=== PATIENT | male | born 1980 | race Caucasian/White ===

== ENCOUNTER 2020-01-20 23:10 | Inpatient (IN) | payer OTHER ==
[~2020-01-20] VITALS: Ht 177.8 cm; Wt 83.1 kg
--- NOTE | 2020-01-20 23:34 | NUR ---
INITIAL CONTACT WITH PT. ASSESSMENT DONE. PT HAS HX OF HERNIATED DISC, SAW CHIROPRACTOR LAST WEEK, HAS HAD INCREASING PAIN, TAKING MOTRIN AND TONIGHT HAD ONSET OF NUMBNESS IN PERIANAL AREA AND FELT HE WAS GOING TO LOSE CONTROL OF HIS BLADDER. PT STATES HAS HAD R LEG WEAKNESS, ABLE TO WALK.
[2020-01-20] MEDS ORDERED: IBUP-1623 PO (23:44)
--- NOTE | 2020-01-21 | NUR ---
MRI SCREEN COMPLETED.
[2020-01-21 00:24] LABS: BASOPHILS # (AUTO) 0.03 x10^3/uL (0-0.1); BASOPHILS % (AUTO) 0 % (0-1); EOSINOPHILS # (AUTO) 0.11 x10^3/uL (0-0.4); EOSINOPHILS % (AUTO) 1 % (1-7); LYMPHOCYTES # (AUTO) 1.59 x10^3/uL (1-3.4); LYMPHOCYTES % (AUTO) 20 % (22-44); MD NO; MEAN CORPUSCULAR HEMOGLOBIN 31.1 pg (27.5-34.5); MEAN CORPUSCULAR HGB CONC 33.9 g/dL (33.2-36.2); MEAN CORPUSCULAR VOLUME 91.8 fL (81-97); MEAN PLATELET VOLUME 8.1 fL (7.4-10.4); MONOCYTES % (AUTO) 6 % (2-9); NEUTROPHILS # (AUTO) 5.59 x10^3/uL (1.8-6.8); NEUTROPHILS % (AUTO) 72 % (42-75); PLATELET COUNT 340 x10^3/uL (130-400); RED BLOOD COUNT 4.53 x10^6/uL (4.38-5.82); RED CELL DISTRIBUTION WIDTH 12.6 % (9.4-14.8)
[2020-01-21 00:33] LABS: ANION GAP 3 mmol/L (5-15); CALCIUM 8.9 mg/dL (8.5-10.1); CHLORIDE 104 mmol/L (98-107); CREATININE 1.02 mg/dL (0.7-1.3)
--- NOTE | 2020-01-21 00:41 | NUR ---
PT IN MRI.
[2020-01-21 00:58] LABS: MICROSCOPIC NOT IND
[2020-01-21] MEDS ORDERED: GADOTERATE 10 MMOL/20 ML SYR ONE (00:58)
[2020-01-21 01:02] LABS: AMPHETAMINE SCREEN, URINE Negative (Negative); BARBITURATE SCREEN, URINE Negative (Negative); BENZODIAZEPINE SCREEN, URINE Negative (Negative); CANNABINOID SCREEN, URINE Negative (Negative); COCAINE SCREEN, URINE Negative (Negative); METHADONE SCREEN, URINE Negative (Negative); OPIATE SCREEN, URINE Negative (Negative)
[2020-01-21] MEDS ORDERED: MORPHINE SULFATE 4 MG/ML, 1ML IVPush PRN (02:30)
[2020-01-21] MEDS ORDERED: ONDANSETRON 2MG/ML, 2ML IVPush PRN ×3 (02:30→04:00)
[2020-01-21 02:38] LABS: INTERNATIONAL NORMALIZED RATIO 0.96 (0.93-1.1); PROTHROMBIN TIME 10.2 Seconds (9.6-11.5)
--- NOTE | 2020-01-21 02:41 | NUR ---
PT TO BE ADMITTED TO ROOM 375. REPORT TO ANA FERNANDEZ.
--- NOTE | 2020-01-21 02:56 | NUR ---
REPORT TO OR. PT TO GO TO OR IN ABOUT 20 MINUTES.
[2020-01-21] MEDS ORDERED: morphine SULFATE 10 MG/ML, 1ML IVPush PRN ×2 (03:00→04:00)
[2020-01-21] MEDS ORDERED: DEXAMETHASONE 4 MG/ML, 5ML IVPush ONE (03:00)
--- NOTE | 2020-01-21 03:03 | NUR ---
Report received from JIM Toro. This RN to assume care. POC: patient to go to OR. Had patient undress and belongings bagged with sticker. Awaiting OR.
[2020-01-21] MEDS ORDERED: BACITRACIN 50,000 UNIT ONE (03:11)
[2020-01-21] MEDS ORDERED: THROMBIN 5,000 UNIT VIAL TP ONE (03:12)
[2020-01-21] MEDS ORDERED: BUPIVACAINE/PF-EPI 0.5% 1:200K ONE (03:12)
[2020-01-21] MEDS ORDERED: DEXAMETHASONE 4 MG/ML, 5ML ONE (03:16)
--- NOTE | 2020-01-21 03:25 | NUR ---
OR here to xfer patient.
[2020-01-21] MEDS ORDERED: FENTANYL PF 250 MCG/5ML ONE (03:59)
[2020-01-21] MEDS ORDERED: DIPHENHYDRAMINE 50 MG/ML, 1ML IM PRN (04:00)
[2020-01-21] MEDS ORDERED: MAGNESIUM HYDROXIDE 8%, 30ML UDC PO PRN (04:00)
[2020-01-21] MEDS: LABETALOL 5MG/ML 40ML VIAL IVPush SCH ×3 (04:00→20:00)
[2020-01-21] MEDS ORDERED: HYDROcodone/APAP 5/325 TABLET PO PRN (04:00)
[2020-01-21] MEDS ORDERED: PHARMACY MAY ADJ FOR RENAL FX MC PRN (04:00)
[2020-01-21] MEDS ORDERED: LABETALOL 5MG/ML, 20ML IVPush PRN (04:00)
[2020-01-21] MEDS ORDERED: DIPHENHYDRAMINE 50 MG/ML, 1ML IVPush PRN (04:00)
[2020-01-21] MEDS ORDERED: SENNA/DOCUSATE TABLET PO PRN (04:00)
[2020-01-21] MEDS ORDERED: LIDOCAINE 1%, 10ML ONE (04:06)
[2020-01-21] MEDS ORDERED: VANCOMYCIN 1,000 MG ONE (04:25)
[2020-01-21] MEDS ORDERED: BUPIVACAINE/PF-EPI 0.5% 1:200K INFIL ONE (04:59)
[2020-01-21] MEDS ORDERED: ALBUTEROL SULFATE 2.5 MG/3 ML NPPB PRN (05:00)
[2020-01-21] MEDS ORDERED: LABETALOL 5MG/ML, 20ML IV PRN (05:00)
[2020-01-21] MEDS ORDERED: ACETAMINOPHEN 325 MG TABLET PO PRN (05:00)
[2020-01-21] MEDS ORDERED: METHOCARBAMOL 1,000 MG in DEXTROSE 5% 100 ML IV PRN (05:00)
[2020-01-21] MEDS ORDERED: PROMETHAZINE 25 MG/ML, 1ML IVPush PRN (05:00)
[2020-01-21] MEDS ORDERED: FENTANYL PF 100 MCG/2ML IV PRN (05:00)
[2020-01-21] MEDS ORDERED: MIDAZOLAM 1 MG/ML, 2ML IV PRN (05:00)
[2020-01-21] MEDS ORDERED: HYDROmorphone 1 MG/ML, 1ML INJ IVPush PRN (05:00)
[2020-01-21] MEDS ORDERED: hydrALAzine 20 MG/ML, 1ML IV PRN (05:00)
[2020-01-21] MEDS ORDERED: OXYcodone 5 MG/5 ML ORAL.SOL UDC PO PRN (05:00)
[2020-01-21] MEDS ORDERED: BACITRACIN 50,000 UNIT IM ONE (05:01)
[2020-01-21] MEDS ORDERED: VANCOMYCIN 1,000 MG IM ONE (05:02)
[2020-01-21] MEDS ORDERED: ONDANSETRON 2MG/ML, 2ML ONE (05:37)
[2020-01-21] MEDS ORDERED: SUCCINYLCHOLINE 20 MG/ML, 10ML ONE (05:37)
[2020-01-21] MEDS ORDERED: CEFAZOLIN 1,000 MG ONE (05:37)
[2020-01-21] MEDS ORDERED: ROCURONIUM 10MG/ML,5ML ONE (05:37)
[2020-01-21] MEDS ORDERED: DEXAMETHASONE 4 MG/ML, 1ML ONE (05:37)
[2020-01-21] MEDS ORDERED: PROPOFOL 10 MG/ML, 20ML ONE (05:37)
[2020-01-21] MEDS ORDERED: NEOSTIGMINE 1 MG/ML, 10ML ONE (05:37)
[2020-01-21] MEDS ORDERED: GLYCOPYRROLATE 0.2MG/1ML, 5ML ONE (05:37)
[2020-01-21] MEDS ORDERED: OXYcodone 5 MG/5 ML ORAL.SOL UDC ONE (06:02)
[2020-01-21 08:00] VITALS: BP 121/82
[2020-01-21] MEDS ORDERED: DEXAMETHASONE 4 MG/ML, 1ML IVPush SCH (09:00)
[2020-01-21] MEDS: NS + 20MEQ KCL 1,000 ML IV SCH ×2 (09:13→20:00)
[2020-01-21] MEDS: OXYcodone/APAP 5/325MG TABLET PO PRN ×4 (11:08→21:56)
[2020-01-21 13:01] VITALS: BP 113/80
[2020-01-21] MEDS: CEFAZOLIN PMX 1GM/50ML 50 ML IVPB SCH ×2 (13:09→21:55)
[2020-01-21] MEDS: METHOCARBAMOL 750 MG TABLET PO PRN (16:03)
[2020-01-21 18:08] VITALS: BP 121/78
[2020-01-21 23:50] VITALS: BP 107/69
[2020-01-22] MEDS: METHOCARBAMOL 750 MG TABLET PO PRN ×2 (03:04→11:35)
[2020-01-22] MEDS: OXYcodone/APAP 5/325MG TABLET PO PRN ×3 (03:08→12:36)
[2020-01-22 03:09] VITALS: BP 116/71
[2020-01-22] MEDS: LABETALOL 5MG/ML 40ML VIAL IVPush SCH (04:00)
[2020-01-22 05:32] LABS: BASOPHILS # (AUTO) 0.02 x10^3/uL (0-0.1); BASOPHILS % (AUTO) 0 % (0-1); EOSINOPHILS # (AUTO) 0.03 x10^3/uL (0-0.4); EOSINOPHILS % (AUTO) 0 % (1-7); LYMPHOCYTES # (AUTO) 2.45 x10^3/uL (1-3.4); LYMPHOCYTES % (AUTO) 25 % (22-44); MD NO; MEAN CORPUSCULAR HEMOGLOBIN 31.1 pg (27.5-34.5); MEAN CORPUSCULAR HGB CONC 33.4 g/dL (33.2-36.2); MEAN CORPUSCULAR VOLUME 92.9 fL (81-97); MEAN PLATELET VOLUME 8.6 fL (7.4-10.4); MONOCYTES # (AUTO) 0.78 x10^3/uL (0.2-0.8); MONOCYTES % (AUTO) 8 % (2-9); NEUTROPHILS # (AUTO) 6.39 x10^3/uL (1.8-6.8); NEUTROPHILS % (AUTO) 66 % (42-75); PLATELET COUNT 308 x10^3/uL (130-400); RED BLOOD COUNT 4.09 x10^6/uL (4.38-5.82); RED CELL DISTRIBUTION WIDTH 12.9 % (9.4-14.8)
[2020-01-22 05:42] LABS: CHLORIDE 107 mmol/L (98-107)
[2020-01-22 05:49] LABS: ALBUMIN 3.4 g/dL (3.4-5.0); ANION GAP 6 mmol/L (5-15); CALCIUM 8.7 mg/dL (8.5-10.1); CREATININE 0.82 mg/dL (0.7-1.3)
[2020-01-22] MEDS: NS + 20MEQ KCL 1,000 ML IV SCH (06:00)
[2020-01-22 07:31] VITALS: BP 116/71
[2020-01-22] MEDS: CEPHALEXIN 500 MG CAPSULE PO SCH ×2 (08:33→11:35)
[2020-01-22] MEDS ORDERED: OXYcodone/APAP 5/325MG PO (10:35)
[2020-01-22] MEDS ORDERED: METH750T2 PO (10:35)
[2020-01-22] MEDS ORDERED: CEPH-376 PO (10:35)
[2020-01-22 11:57] VITALS: BP 102/68
[2020-01-22 12:36] VITALS: BP 109/72
== END 2020-01-22 13:30 | disposition home or self-care (01) | DRG 29 ==
LOC: ED 01-21 01:47 → EDIP 01-21 02:06 → 4NE 01-21 06:30
PROVIDERS: ADMIT Internal Medicine; ATTEND Internal Medicine
PROC: 0SB20ZZ Excision of Lumbar Vertebral Disc, Open Approach (ICD-10-PCS; 2020-01-21)
PROC: BR39ZZZ Magnetic Resonance Imaging (MRI) of Lumbar Spine (ICD-10-PCS; 2020-01-21)
PROC: 01NB0ZZ Release Lumbar Nerve, Open Approach (ICD-10-PCS; principal; 2020-01-21 03:30)
DX: G83.4 Cauda equina syndrome (principal); E87.1 Hypo-osmolality and hyponatremia; G95.20 Unspecified cord compression; M47.9 Spondylosis, unspecified; M48.061 Spinal stenosis, lumbar region without neurogenic claudication; M51.16 Intervertebral disc disorders with radiculopathy, lumbar region; X58.XXXA Exposure to other specified factors, initial encounter; Y93.02 Activity, running; Z79.52 Long term (current) use of systemic steroids; Z88.0 Allergy status to penicillin; Z88.1 Allergy status to other antibiotic agents
CPT/HCPCS: 36415; 72100; J3490; 72158; 80048; 80307; 81003; 82040; 85025; 85610; 85730; G0378; J0690; J1100; J2405; J2704; J2710; J3010; J3370; J3480; A9575; J0330; J2800